=== PATIENT | female | born 1940 | race Caucasian/White ===

== ENCOUNTER 2023-11-23 09:32 | Emergency (ER) | payer MEDICARE, OTHER, SELFPAY ==
[2023-11-23 09:38] VITALS: BP 144/91
[2023-11-23 10:37] LABS: % Eosinophils 1.9 % (0-6); % Immature Granulocytes 2.2 % (0-0.5); % Monocytes 11.8 % (1.7-9.3); % Neutrophils 76.1 % (42.2-75.2); Absolute Basophils 0.1 10^3/uL (0-0.2); Absolute Eosinophils 0.2 10^3/uL (0-0.7); Absolute Immature Granulocytes 0.2 10^3/uL (0-0.05); Absolute Lymphocytes 0.6 10^3/uL (1.2-3.4); Absolute Monocytes 0.9 10^3/uL (0.1-0.6); Hematocrit 40.9 % (37.0-47.0); Hemoglobin 13.8 g/dL (12.0-16.0); Mean Corp Hgb Conc. 33.7 g/dL (33.0-37.0); Mean Corpuscular Hgb 31.4 pg (27.0-31.0); Mean Platelet Volume 9.2 fL (7.4-10.4); Nucleated Red Blood Cells % 0 %; Platelet Count 420 10^3/uL (130-400); Red Cell Dist. Width 13.5 % (11.5-14.5); White Blood Cell Count 7.8 10^3/uL (4.8-10.8)
--- NOTE | 2023-11-23 10:50 | ED.GENMED ---
History of Present Illness
General
Chief Complaint: Abdominal Symptoms
Source: patient, records and family
Exam Limitations: none
Time Seen by Provider: 11/23/23 09:42
Nursing documentation reviewed up to this point in time: agreed with
Travel History
Have you had any contact with someone who has COVID-19?: No
Do you have any symptoms of coronavirus? Fever > 100 degrees, chills, cough, shortness of breath, sore throat, loss of taste or smell, muscle aches, or headache?: No
History of Present Illness
History of Present Illness:
Patient is an 83-year-old female who presents with nausea but no vomiting as well as diarrhea for the past 6 days. The diarrhea is actually improved. Patient denies any recent antibiotic use. Patient is concerned because for the past 3 days she
has been unable to take her Wellbutrin and Lexapro. Patient is starting to feel a little shaky. Patient has been trying to drink plenty of fluids. Patient denies fever or chills. Patient has general malaise. Patient denies nasal congestion,
sore throat or cough. Patient denies chest pain, shortness of breath or palpitations. Patient does have back pain that has been ongoing for the past couple months and has a ruptured disc. Patient's had multiple epidural injections without
improvement. Patient denies any symptoms. Patient states the diarrhea is actually improving and she is feeling better but started to feel shaky since she has been unable to take her Lexapro or Wellbutrin.
Past History
Past History
ED Past Medical History: HTN, Hypercholesterolemia, Psychiatric and Other (Kidney stones, Essential tremors)
ED Past Surgical History: Gynecological (tubal ligation), Orthopedic (bunion), Tonsilectomy and Other (cataract)
Social History
Tobacco: Non-smoker
Alcohol: Occasional
Personal:
Living: alone
Review of Systems
Review of Systems
All Other Systems: ROS reviewed and negative except as documented in HPI and ROS
Constitutional: Reports fatigue; Denies fever or chills
EENT: Reports no symptoms
Respiratory: Reports no symptoms
Cardiac: Reports no symptoms
ABD/GI: Reports nausea, diarrhea and anorexia; Denies abdominal pain, vomiting, bloody stools or black stools
: Reports no symptoms
Musculoskeletal: Reports back pain
Skin: Reports no symptoms
Neurological: Reports no symptoms
Hematologic/Lymphatic: Reports no symptoms
Phy Exam
Physical Exam
Physical Exam:
Physical Exam
General: mild distress, alert and appropriate, well nourished, dry mucous membranes
HENT: Normocephalic, supple with no lymphadenopathy, no thyromegaly
Eyes: Clear sclera, conjuctiva without injection
Heart: Regular rhythm and rate. No S3, S4. No murmur.
Lungs: No respiratory distress, no stridor, lung sounds clear and equal bilaterally
Abdomen: Soft, nontender, no organomegaly, no CVA tenderness, BS good
Neuro: Alert and oriented x 3, CN II - XII intact, no motor focality, no cerebellar dysfunction
Skin: no rash
Psychiatric: well kept. interactive and cooperative
Extremities: No edema, cyanosis, tenderness, Good and equal peripheral pulses.
Course
Orders/Labs/Results
Orders:
Orders
11/23/23 10:23
Complete Blood Count/With Diff Urgent
Comprehensive Metabolic Panel Urgent
11/23/23 10:45
Lorazepam [Ativan] 0.5 mg IV NOW STA
11/23/23 10:50
0.9% Sodium Chloride 1000 ml [Nss] 1,000 ml IV BOLUS
Ondansetron Injectable [Zofran] 4 mg IV NOW STA
Abnormal Lab Results
11/23/23
10:23
MCH 31.4 H pg
(27.0-31.0)
Plt Count 420 H 10^3/uL
(130-400)
Abs Immat Gran (auto) 0.2 H 10^3/uL
(0-0.05)
Absolute Lymphs (auto) 0.6 L 10^3/uL
(1.2-3.4)
Absolute Monos (auto) 0.9 H 10^3/uL
(0.1-0.6)
Immature Gran % 2.2 H %
(0-0.5)
Neutrophils % 76.1 H %
(42.2-75.2)
Lymphocytes % 7.0 L %
(20.5-51.1)
Monocytes % 11.8 H %
(1.7-9.3)
Sodium 133 L mmol/L
(135-145)
BUN 19 H mg/dl
(7-17)
Glucose 149 H mg/dl
(70-99)
Total Protein 6.0 L g/dl
(6.3-8.2)
11/23/23 10:23
11/23/23 10:23
Vital Signs
Initial and Last Documented VS:
Initial Vital Signs
Temp Pulse Resp BP Pulse Ox
99 F 67 16 144/91 99
11/23/23 09:38 11/23/23 09:38 11/23/23 09:38 11/23/23 09:38 11/23/23 09:38
Last Documented Vital Signs
Temp Pulse Resp BP Pulse Ox
99 F 90 17 144/91 96
11/23/23 09:38 11/23/23 13:30 11/23/23 13:30 11/23/23 09:38 11/23/23 12:00
*Critical Care Note
Total Time (30-74mins, 75-104mins- exclusive of procedures): Not Applicable
Update Note
Update Note:
Patient able to eat and drink and is feeling better. Patient will restart her Lexapro and Wellbutrin. Patient was given Zofran for outpatient
ED Attending Note
-
Portions of this chart may have been created with voice recognition software.� Occasional wrong word or��sound alike� substitutions may have occurred due to the inherent limitations of voice recognition software.
Discharge Plan
Departure
Patient Disposition: Home (Routine Discharge)
Date of Disposition: 11/23/23
Time of Disposition: 13:56
Patient with high blood pressure during this ER visit?: Yes
Condition: Fair
Covid-19: Not Applicable
Discharge Problem:
Gastroenteritis, Acute dehydration
Instructions: Dehydration, Adult (DC), [place] Diet, Viral Gastroenteritis, Adult (DC), BLOOD PRESSURE
Prescriptions:
New
ondansetron 8 mg tablet,disintegrating
8 mg PO TID PRN (Reason: nausea and vomiting) Qty: 20 0RF
No Action
bupropion HCl [Wellbutrin SR] 150 mg Tablet Sustained-Release 12 Hr
150 mg PO DAILY
atorvastatin 10 mg Tablet
10 mg PO HS
propranolol 40 mg Tablet
20 mg PO BID
lorazepam 0.5 mg Tablet
0.5 mg PO HS PRN (Reason: anxiety)
Vicodin 5-500 mg Tablet
1 tab PO Q4H PRN (Reason: severe pain)
escitalopram oxalate 20 mg Tablet
20 mg PO DAILY
coenzyme Q10 [CoQ-10] 100 mg Capsule
200 mg PO DAILY
gabapentin 100 mg Tablet
200 mg PO BID
hydrochlorothiazide 12.5 mg Tablet
12.5 mg PO DAILY
Prolia 60 mg/mL Syringe
60 mg SC [id number]
PreserVision AREDS-2 250-90-40-1 mg Capsule
1 tab PO AMHS
cyanocobalamin (vitamin B-12) [Vitamin B-12] 1,000 mcg Tablet
1,000 mcg PO DAILY
Viactiv 500-200-40 mg-unit-mcg Tablet
1 tab PO BID
Probiotic 3 billion cell Tablet,Chewable
1 tab PO HS
Women's 50 Plus Advanced 400-20 mcg Tablet
1 tab PO DAILY
Blink Tears 0.25 % Drops
1 drp OPHTHALMIC (EYE) BID
Referrals:
Yomi Floyd MD [Family Provider] - Follow up in 5-7 days
Activity Restrictions/Additional Instructions:
Start taking your Wellbutrin and Lexapro again along with your other medications. Any problems please return.
Interventions
Interventions:
*Risk Screen - Suicide Last Done: 11/23/23 09:38
*General Assessment Last Done: 11/23/23 09:38
*Neglect/Abuse Screening Last Done: 11/23/23 09:38
Discharge Date and Time
Print Language: TONGAN
[2023-11-23 10:51] LABS: ALT (SGPT) 23 U/L (0-35); AST (SGOT) 32 U/L (14-36); Albumin 3.7 g/dl (3.5-5.0); Alkaline Phosphatase 82 U/L (38-126); Blood Urea Nitrogen 19 mg/dl (7-17); Calcium 8.8 mg/dl (8.4-10.2); Carbon Dioxide 22 mmol/L (22-30); Chloride 103 mmol/L (98-107); Glucose 149 mg/dl (70-99); Potassium 3.6 mmol/L (3.5-5.1); Sodium 133 mmol/L (135-145); Total Bilirubin 1.1 mg/dl (0.2-1.3); eGFR > 60.00
[2023-11-23] MEDS: ATIVAN 0.5 MG IV (11:02)
[2023-11-23] MEDS: NSS 1000 IV (11:03)
[2023-11-23] MEDS: ZOFRAN 4 MG IV (11:03)
== END 2023-11-23 14:18 | disposition home or self-care (01) ==
LOC: EMR 09:32
PROVIDERS: EMERGENCY PHYSICIAN Emergency Medicine; FAMILY PHYSICIAN Family Medicine
DX: K52.9 Noninfective gastroenteritis and colitis, unspecified (principal); E86.0 Dehydration; I10 Essential (primary) hypertension
CPT/HCPCS: 99284; 96374; 96375; 96361; 80053; 85025

== ENCOUNTER 2023-11-24 12:42 | Emergency (ER) | payer MEDICARE, OTHER, SELFPAY ==
[2023-11-24 12:48] VITALS: BP 155/84
[2023-11-24 16:08] VITALS: BMI 25.9
[2023-11-24 16:13] VITALS: BP 145/69
[2023-11-24] MEDS: NSS 1000 IV (16:22)
[2023-11-24 16:36] LABS: % Basophils 0.9 % (0-2); % Eosinophils 4.2 % (0-6); % Immature Granulocytes 3.2 % (0-0.5); % Monocytes 11.3 % (1.7-9.3); % Neutrophils 70.4 % (42.2-75.2); Absolute Basophils 0.1 10^3/uL (0-0.2); Absolute Eosinophils 0.3 10^3/uL (0-0.7); Absolute Immature Granulocytes 0.2 10^3/uL (0-0.05); Absolute Lymphocytes 0.8 10^3/uL (1.2-3.4); Absolute Monocytes 0.9 10^3/uL (0.1-0.6); Absolute Neutrophils 5.4 10^3/uL (1.4-6.5); Hematocrit 39.7 % (37.0-47.0); Hemoglobin 13.5 g/dL (12.0-16.0); Mean Corpuscular Hgb 31.6 pg (27.0-31.0); Mean Platelet Volume 9.1 fL (7.4-10.4); Nucleated Red Blood Cells % 0 %; Platelet Count 424 10^3/uL (130-400); Red Blood Cell Count 4.27 10^6/uL (4.20-5.40); Red Cell Dist. Width 13.6 % (11.5-14.5); White Blood Cell Count 7.6 10^3/uL (4.8-10.8)
[2023-11-24 16:50] LABS: ALT (SGPT) 23 U/L (0-35); AST (SGOT) 32 U/L (14-36); Albumin 3.5 g/dl (3.5-5.0); Alkaline Phosphatase 75 U/L (38-126); Blood Urea Nitrogen 13 mg/dl (7-17); Calcium 9.1 mg/dl (8.4-10.2); Carbon Dioxide 26 mmol/L (22-30); Chloride 98 mmol/L (98-107); Estimated Creatinine Clearance 39 ml/min; Glucose 98 mg/dl (70-99); Sodium 130 mmol/L (135-145); Total Bilirubin 0.7 mg/dl (0.2-1.3); Total Protein 5.8 g/dl (6.3-8.2); eGFR > 60.00
[2023-11-24 16:56] LABS: Potassium 3.7 mmol/L (3.5-5.1)
[2023-11-24 17:00] VITALS: BP 138/76
[2023-11-24 18:00] VITALS: BP 148/70
[2023-11-24 18:30] LABS: Urine Albumin Negative (Neg - Trace); Urine Bilirubin Negative (Negative); Urine Character Clear (Clear); Urine Color Yellow; Urine Glucose Negative (Negative); Urine Ketone Negative (Negative); Urine Leukocyte Negative (Negative); Urine Nitrite Negative (Negative); Urine Occult Blood Negative (Negative); Urine Specific Gravity 1.005 (<1.030); Urine Urobilinogen Negative (Neg - 1+); Urine pH 6.5 (5.0-9.0)
[2023-11-24 19:15] VITALS: BP 130/58
--- NOTE | 2023-11-24 19:17 | ED.MUSCINJ ---
HPI-Injury
General
Chief Complaint: Gait Dysfunction
Time Seen by Provider: 11/24/23 16:02
Travel History
Have you had any contact with someone who has COVID-19?: No
Do you have any symptoms of coronavirus? Fever > 100 degrees, chills, cough, shortness of breath, sore throat, loss of taste or smell, muscle aches, or headache?: No
Past History
Past History
ED Past Medical History: HTN, Hypercholesterolemia, Psychiatric and Other (Kidney stones, Essential tremors)
ED Past Surgical History: Gynecological (tubal ligation), Orthopedic (bunion), Tonsilectomy and Other (cataract)
Social History
Tobacco: Non-smoker
Alcohol: Occasional
Personal:
Living: alone
Injury Course
Orders/Labs/Results
Orders:
Orders
11/24/23 16:12
CT Head W/o Iv Contrast Urgent
Comment:
Reason For Exam: FALL, CHANGE IN MENTAL STATUS
0.9% Sodium Chloride 1000 ml [Nss] 1,000 ml IV BOLUS
11/24/23 16:23
Complete Blood Count/With Diff Urgent
Comprehensive Metabolic Panel Urgent
Urinalysis Reflex To Culture Urgent
Date Specimen was Collected: 11/24/23
Time Specimen was Collected: 16:21
Abnormal Lab Results
11/24/23
16:23
MCH 31.6 H pg
(27.0-31.0)
Plt Count 424 H 10^3/uL
(130-400)
Abs Immat Gran (auto) 0.2 H 10^3/uL
(0-0.05)
Absolute Lymphs (auto) 0.8 L 10^3/uL
(1.2-3.4)
Absolute Monos (auto) 0.9 H 10^3/uL
(0.1-0.6)
Immature Gran % 3.2 H %
(0-0.5)
Lymphocytes % 10.0 L %
(20.5-51.1)
Monocytes % 11.3 H %
(1.7-9.3)
Sodium 130 L mmol/L
(135-145)
Total Protein 5.8 L g/dl
(6.3-8.2)
11/24/23 16:23
11/24/23 16:23
ED Attending Note
-
Portions of this chart may have been created with voice recognition software.� Occasional wrong word or��sound alike� substitutions may have occurred due to the inherent limitations of voice recognition software.
Discharge Plan
Departure
Prescriptions:
No Action
bupropion HCl [Wellbutrin SR] 150 mg Tablet Sustained-Release 12 Hr
150 mg PO DAILY
atorvastatin 10 mg Tablet
10 mg PO HS
propranolol 40 mg Tablet
20 mg PO BID
lorazepam 0.5 mg Tablet
0.5 mg PO HS PRN (Reason: anxiety)
Vicodin 5-500 mg Tablet
1 tab PO Q4H PRN (Reason: severe pain)
escitalopram oxalate 20 mg Tablet
20 mg PO DAILY
coenzyme Q10 [CoQ-10] 100 mg Capsule
200 mg PO DAILY
gabapentin 100 mg Tablet
200 mg PO BID
hydrochlorothiazide 12.5 mg Tablet
12.5 mg PO DAILY
Prolia 60 mg/mL Syringe
60 mg SC [id number]
PreserVision AREDS-2 250-90-40-1 mg Capsule
1 tab PO AMHS
cyanocobalamin (vitamin B-12) [Vitamin B-12] 1,000 mcg Tablet
1,000 mcg PO DAILY
Viactiv 500-200-40 mg-unit-mcg Tablet
1 tab PO BID
Probiotic 3 billion cell Tablet,Chewable
1 tab PO HS
Women's 50 Plus Advanced 400-20 mcg Tablet
1 tab PO DAILY
Blink Tears 0.25 % Drops
1 drp OPHTHALMIC (EYE) BID
ondansetron 8 mg tablet,disintegrating
8 mg PO TID PRN (Reason: nausea and vomiting) Qty: 20 0RF
Referrals:
Yomi Floyd MD [Family Provider] -
Interventions
Interventions:
*Risk Screen - Suicide Last Done: 11/24/23 12:48
*General Assessment Last Done: 11/24/23 12:48
*Neglect/Abuse Screening Last Done: 11/24/23 12:48
ED- Fall Risk Assessment Last Done: 11/24/23 17:32
*ED COVID-19 Vaccine History Last Done: 11/24/23 16:08
ED- Neurological Assessment Last Done: 11/24/23 16:08
ED-Musculoskeletal Assessment Last Done: 11/24/23 16:08
ED Swallowing Screen Last Done: 11/24/23 17:32
Discharge Date and Time
Print Language: TURKMEN
--- NOTE | 2023-11-24 19:21 | ED.GENMED ---
History of Present Illness
General
Chief Complaint: Gait Dysfunction
Source: patient and family (daughter)
Exam Limitations: none
Time Seen by Provider: 11/24/23 16:02
Nursing documentation reviewed up to this point in time: agreed with
Travel History
Have you had any contact with someone who has COVID-19?: No
Do you have any symptoms of coronavirus? Fever > 100 degrees, chills, cough, shortness of breath, sore throat, loss of taste or smell, muscle aches, or headache?: No
History of Present Illness
History of Present Illness:
Patient to ED with complaint of weakness. According to daughter, patient was seen in ED yesterday after GI symptoms since . She was given zofran and IVF for dehydration and then ativan for her complaint of feeling withdrawal from her
wellbutrin, lexapro, and gabipentin. Daughter states patient woke today and was weak and lethargic. Fell while getting OOB. Since then she has been unable to walk due to feeling weak. Brought to ED by daughter. Patient states she continues to
feel better as time goes on. SHe denies fever/chills, n/v/d. Able to eat cereal this AM. He denies any pain. Awake, alert and oriented x 3
Past History
Past History
ED Past Medical History: HTN, Hypercholesterolemia, Psychiatric and Other (Kidney stones, Essential tremors)
ED Past Surgical History: Gynecological (tubal ligation), Orthopedic (bunion), Tonsilectomy and Other (cataract)
Social History
Tobacco: Non-smoker
Alcohol: Occasional
Personal:
Living: alone
Review of Systems
Review of Systems
Allergies reviewed?: Yes
All Other Systems: ROS reviewed and negative except as documented in HPI and ROS
Constitutional: Reports fatigue
EENT: Reports no symptoms
Respiratory: Reports no symptoms
Cardiac: Reports no symptoms
ABD/GI: Reports no symptoms
: Reports no symptoms
Musculoskeletal: Reports no symptoms
Skin: Reports no symptoms
Neurological: Reports weakness
Psychiatric: Reports no symptoms
Phy Exam
General Physical Exam
General Presentation: well appearing and no apparent distress
General age: appears stated age
General Skin: warm and dry
General Habitus: normal
General Hydration: appears well hydrated
Eye Exam
Eye Exam: PERRL and EOMI
Cardiovascular Exam
Cardiovascular Exam: regular rate/rhythm and no edema
Pulmonary Exam
Pulmonary Exam: lungs clear and no respiratory distress
Gastrointestinal Exam
Gastrointestinal Exam: normal bowel sounds, non tender and soft
Neurological Exam
Neurological Exam: alert, oriented x3, CN II-XII intact, no motor deficits, no sensory deficits and normal gait
Musculoskeletal Exam
Musculoskeletal Exam: full ROM and neuro vasc intact
Skin Exam
Skin Exam: normal color, warm/dry and no rash
Psychiatric Exam
Psychiatric Exam: normal mood/affect
Course
Orders/Labs/Results
Orders:
Orders
11/24/23 16:12
CT Head W/o Iv Contrast Urgent
Comment:
Reason For Exam: FALL, CHANGE IN MENTAL STATUS
0.9% Sodium Chloride 1000 ml [Nss] 1,000 ml IV BOLUS
11/24/23 16:23
Complete Blood Count/With Diff Urgent
Comprehensive Metabolic Panel Urgent
Urinalysis Reflex To Culture Urgent
Date Specimen was Collected: 11/24/23
Time Specimen was Collected: 16:21
Abnormal Lab Results
11/24/23
16:23
MCH 31.6 H pg
(27.0-31.0)
Plt Count 424 H 10^3/uL
(130-400)
Abs Immat Gran (auto) 0.2 H 10^3/uL
(0-0.05)
Absolute Lymphs (auto) 0.8 L 10^3/uL
(1.2-3.4)
Absolute Monos (auto) 0.9 H 10^3/uL
(0.1-0.6)
Immature Gran % 3.2 H %
(0-0.5)
Lymphocytes % 10.0 L %
(20.5-51.1)
Monocytes % 11.3 H %
(1.7-9.3)
Sodium 130 L mmol/L
(135-145)
Total Protein 5.8 L g/dl
(6.3-8.2)
11/24/23 16:23
11/24/23 16:23
Vital Signs
Initial and Last Documented VS:
Initial Vital Signs
Temp Pulse Resp BP Pulse Ox
98.3 F 65 18 155/84 96
11/24/23 12:48 11/24/23 12:48 11/24/23 12:48 11/24/23 12:48 11/24/23 12:48
Last Documented Vital Signs
Temp Pulse Resp BP Pulse Ox
98.3 F 73 20 130/58 97
11/24/23 19:15 11/24/23 19:15 11/24/23 19:15 11/24/23 19:15 11/24/23 19:15
*Radiology
Radiology exam reviewed: radiology read reviewed
*Pulse Oximetry
Patient hypoxic: no
*Critical Care Note
Total Time (30-74mins, 75-104mins- exclusive of procedures): Not Applicable
Update Note
Update Note:
Patient feeling much better. Eating and drinking in dept. Able to ambulate safely with walker. SHe is discharged home with daughter, will follow up with PCP.
ED Attending Note
-
Portions of this chart may have been created with voice recognition software.� Occasional wrong word or��sound alike� substitutions may have occurred due to the inherent limitations of voice recognition software.
Discharge Plan
Departure
Patient Disposition: Home (Routine Discharge)
Date of Disposition: 11/24/23
Time of Disposition: 19:17
Patient with high blood pressure during this ER visit?: No
Condition: Good
Covid-19: Not Applicable
Discharge Problem:
Weakness
Instructions: Generalized Weakness
Prescriptions:
No Action
bupropion HCl [Wellbutrin SR] 150 mg Tablet Sustained-Release 12 Hr
150 mg PO DAILY
atorvastatin 10 mg Tablet
10 mg PO HS
propranolol 40 mg Tablet
20 mg PO BID
lorazepam 0.5 mg Tablet
0.5 mg PO HS PRN (Reason: anxiety)
Vicodin 5-500 mg Tablet
1 tab PO Q4H PRN (Reason: severe pain)
escitalopram oxalate 20 mg Tablet
20 mg PO DAILY
coenzyme Q10 [CoQ-10] 100 mg Capsule
200 mg PO DAILY
gabapentin 100 mg Tablet
200 mg PO BID
hydrochlorothiazide 12.5 mg Tablet
12.5 mg PO DAILY
Prolia 60 mg/mL Syringe
60 mg SC [id number]
PreserVision AREDS-2 250-90-40-1 mg Capsule
1 tab PO AMHS
cyanocobalamin (vitamin B-12) [Vitamin B-12] 1,000 mcg Tablet
1,000 mcg PO DAILY
Viactiv 500-200-40 mg-unit-mcg Tablet
1 tab PO BID
Probiotic 3 billion cell Tablet,Chewable
1 tab PO HS
Women's 50 Plus Advanced 400-20 mcg Tablet
1 tab PO DAILY
Blink Tears 0.25 % Drops
1 drp OPHTHALMIC (EYE) BID
ondansetron 8 mg tablet,disintegrating
8 mg PO TID PRN (Reason: nausea and vomiting) Qty: 20 0RF
Referrals:
Yomi Floyd MD [Family Provider] - Call in 1-3 days for appt
Activity Restrictions/Additional Instructions:
Return to the emergency department for any changes in/worsening of your symptoms.
Interventions
Interventions:
*Risk Screen - Suicide Last Done: 11/24/23 12:48
*General Assessment Last Done: 11/24/23 12:48
*Neglect/Abuse Screening Last Done: 11/24/23 12:48
ED- Fall Risk Assessment Last Done: 11/24/23 17:32
*ED COVID-19 Vaccine History Last Done: 11/24/23 16:08
ED- Neurological Assessment Last Done: 11/24/23 16:08
ED-Musculoskeletal Assessment Last Done: 11/24/23 16:08
ED Swallowing Screen Last Done: 11/24/23 17:32
Discharge Date and Time
Print Language: TURKISH
== END 2023-11-24 19:48 | disposition home or self-care (01) ==
LOC: EMR 12:42
PROVIDERS: Nurse Practitioner; EMERGENCY PHYSICIAN Emergency Medicine; FAMILY PHYSICIAN Family Medicine
DX: R53.1 Weakness (principal); R53.83 Other fatigue; R26.2 Difficulty in walking, not elsewhere classified; W06.XXXA Fall from bed, initial encounter
CPT/HCPCS: 99284; 96360; 70450; 80053; 81003; 85025

== ENCOUNTER 2023-12-04 22:29 | Emergency (ER) | payer MEDICARE, OTHER, SELFPAY ==
[2023-12-04 22:31] VITALS: BP 158/78; BMI 26.5
--- NOTE | 2023-12-05 01:46 | ED.GENMED ---
History of Present Illness
General
Chief Complaint: Anal/Rectal Problem
Source: patient
Exam Limitations: none
Time Seen by Provider: 12/05/23 01:22
Travel History
Have you had any contact with someone who has COVID-19?: No
Do you have any symptoms of coronavirus? Fever > 100 degrees, chills, cough, shortness of breath, sore throat, loss of taste or smell, muscle aches, or headache?: No
History of Present Illness
History of Present Illness:
This is a 83 year old female that comes in with c/o constipation. States that she hasn't have a BM since about Saturday or Saturday. States that she is on medication that causes her to get constipated. States that she tried Miralax, and she took 3
Colace and has not gone to the bathroom. Denies any fever, chills, chest pain, SOB, abd pain, nausea, vomiting, diarrhea, headache, dizziness, urinary burning.
Past History
Past History
ED Past Medical History: HTN, Hypercholesterolemia, Psychiatric (Anxiety, Depression) and Other (Kidney stones, Essential tremors, )
ED Past Surgical History: Gynecological (tubal ligation), Orthopedic (bunion), Tonsilectomy and Other (cataract)
Social History
Tobacco: Non-smoker
Alcohol: Occasional
Personal:
Living: alone
Review of Systems
Review of Systems
All Other Systems: ROS reviewed and negative except as documented in HPI and ROS
Constitutional: Reports no symptoms; Denies fever or chills
EENT: Reports no symptoms
Respiratory: Reports no symptoms; Denies cough or trouble breathing
Cardiac: Reports no symptoms; Denies chest pain
ABD/GI: Reports constipated; Denies abdominal pain, nausea, vomiting or diarrhea
: Reports no symptoms; Denies dysuria, frequency or urgency
Musculoskeletal: Reports no symptoms
Skin: Reports no symptoms
Neurological: Reports no symptoms; Denies dizzy or headache
Psychiatric: Reports no symptoms
Phy Exam
General Physical Exam
General Presentation: well appearing and no apparent distress
General age: appears stated age
General Skin: warm and dry
General Habitus: elderly
General Mental: alert
General Hydration: appears well hydrated
ENT Exam
ENT Exam: pharynx normal and neck supple
Eye Exam
Eye Exam: EOMI
Cardiovascular Exam
Cardiovascular Exam: regular rate/rhythm, no edema, no murmur and normal peripheral pulses
Pulmonary Exam
Pulmonary Exam: lungs clear, no respiratory distress, no rales, chest non tender, no crackles, no rhonchi, no wheezing and no cough
Gastrointestinal Exam
Gastrointestinal Exam: normal bowel sounds, non tender, soft, no organomegaly, no pulsatile mass, non distended and other (Rectal exam reveals that there is a large amount of stool in the rectum. Disimpacted small amount of formed stool. )
Musculoskeletal Exam
Musculoskeletal Exam: full ROM and no edema
Skin Exam
Skin Exam: normal color, warm/dry, no rash and no petechia
Psychiatric Exam
Psychiatric Exam: normal mood/affect
Course
Orders/Labs/Results
Orders:
Orders
12/05/23 01:39
Enema- Treatment ONCE
Type: Milk of Molasses
Vital Signs
Initial and Last Documented VS:
Initial Vital Signs
Temp Pulse Resp BP Pulse Ox
98.7 F 63 16 158/78 98
12/04/23 22:31 12/04/23 22:31 12/04/23 22:31 12/04/23 22:31 12/04/23 22:31
Last Documented Vital Signs
Temp Pulse Resp BP Pulse Ox
98.7 F 63 16 150/68 95
12/04/23 22:31 12/04/23 22:31 12/04/23 22:31 12/05/23 02:19 12/05/23 02:20
MDM/Problems Addressed
Differential Diagnosis Includes:
Constipation.
MDM/Problems Addressed:
This is a 83 year old female that comes in with c/o constipation. States that she has not had a BM since Saturday or Saturday.
Will give patient Enema and then recheck.
Back into see patient. Patient has had a large BM after the enema. Will discharge home.
Chronic conditions affecting care:
NA
Acute Exacerbation and/or Progression of Chronic Illness:
NA
*Pulse Oximetry
Patient hypoxic: no
*EKG
Interpreted by ED Provider?: NA
Rate: EKG- N/A
*Steam Hammer Operator Interpretation
Rate: Steam Hammer Operator- N/A
*Critical Care Note
Total Time (30-74mins, 75-104mins- exclusive of procedures): Not Applicable
ED Attending Note
-
Portions of this chart may have been created with voice recognition software.� Occasional wrong word or��sound alike� substitutions may have occurred due to the inherent limitations of voice recognition software.
Discharge Plan
Departure
Patient Disposition: Home (Routine Discharge)
Date of Disposition: 12/05/23
Time of Disposition: 03:24
Patient with high blood pressure during this ER visit?: Yes
Condition: Good
Covid-19: Not Applicable
Discharge Problem:
Constipation
Instructions: Constipation, Adult (DC), BLOOD PRESSURE
Prescriptions:
No Action
bupropion HCl [Wellbutrin SR] 150 mg Tablet Sustained-Release 12 Hr
150 mg PO DAILY
atorvastatin 10 mg Tablet
10 mg PO HS
propranolol 40 mg Tablet
20 mg PO BID
lorazepam 0.5 mg Tablet
0.5 mg PO HS PRN (Reason: anxiety)
Vicodin 5-500 mg Tablet
1 tab PO Q4H PRN (Reason: severe pain)
escitalopram oxalate 20 mg Tablet
20 mg PO DAILY
coenzyme Q10 [CoQ-10] 100 mg Capsule
200 mg PO DAILY
gabapentin 100 mg Tablet
200 mg PO BID
hydrochlorothiazide 12.5 mg Tablet
12.5 mg PO DAILY
Prolia 60 mg/mL Syringe
60 mg SC [id number]
PreserVision AREDS-2 250-90-40-1 mg Capsule
1 tab PO AMHS
cyanocobalamin (vitamin B-12) [Vitamin B-12] 1,000 mcg Tablet
1,000 mcg PO DAILY
Viactiv 500-200-40 mg-unit-mcg Tablet
1 tab PO BID
Probiotic 3 billion cell Tablet,Chewable
1 tab PO HS
Women's 50 Plus Advanced 400-20 mcg Tablet
1 tab PO DAILY
Blink Tears 0.25 % Drops
1 drp OPHTHALMIC (EYE) BID
ondansetron 8 mg tablet,disintegrating
8 mg PO TID PRN (Reason: nausea and vomiting) Qty: 20 0RF
Referrals:
Yomi Floyd MD [Family Provider] - Call in 1-3 days for appt
Activity Restrictions/Additional Instructions:
As discussed, please increase your water intake to 8-8oz glasses daily. You may also try Prune juice mixed with apple juice in equal amounts and heat and drink daily. Continue with the Miralax to help with the Constipation and Colace daily. Follow
up with the family doctor in the next 2-3 days as needed. IF YOU HAVE ABDOMINAL PAIN, OR YOU HAVE ANY OTHER CONCERNS PLEASE RETURN TO THE EMERGENCY ROOM.
Interventions
Interventions:
*Risk Screen - Suicide Last Done: 12/04/23 22:31
*Neglect/Abuse Screening Last Done: 12/04/23 22:31
*ED COVID-19 Vaccine History Last Done: 12/04/23 22:31
Discharge Date and Time
Print Language: THAI
[2023-12-05 02:19] VITALS: BP 150/68
[2023-12-05 03:00] VITALS: BP 153/56
== END 2023-12-05 03:53 | disposition home or self-care (01) ==
LOC: EMR 22:29
PROVIDERS: EMERGENCY PHYSICIAN Emergency Medicine; FAMILY PHYSICIAN Family Medicine
DX: K59.00 Constipation, unspecified (principal); I10 Essential (primary) hypertension
CPT/HCPCS: 99282

== ENCOUNTER → 2024-12-04 11:17 | Outpatient (REF) | payer MEDICARE, OTHER, SELFPAY | LOC: HWRAD 11:17 | PROVIDERS: ATTENDING PHYSICIAN Physician Assistant; FAMILY PHYSICIAN Family Medicine | DX: M81.0 Age-related osteoporosis without current pathological fracture (principal) | CPT/HCPCS: 77080 ==